=== PATIENT | female | born 1985 | race African-American/Black ===

== ENCOUNTER 2019-08-02 15:59 | Emergency (ER) | payer SELFPAY ==
[~2019-08-02] VITALS: Ht 175.3 cm; Wt 91.8 kg
[~2019-08-02 15:59] MED LIST: BENZ100C PO; PRED50TA PO; PROAIR RESPICL90 MCG IH; PSEU120T58 PO
[2019-08-02 16:10] VITALS: BP 147/80
[2019-08-02] MEDS ORDERED: IBUPROFEN 200 MG TABLET. PO ONE (16:15)
--- NOTE | 2019-08-02 16:16 | PHYS DOC ---
Past Medical History Past Medical History: No Pertinent History Past Surgical History: No Surgical History Alcohol Use: Rarely Drug Use: Marijuana Adult General Chief Complaint Chief Complaint: FEVER HPI HPI Patient is a 34 year old female who presents with 3 days of fever, cough, bodyaches, nasal congestion, itchy watery eyes. She states she's been taking [place] cold and flu. She last took that this morning. Temperature and the emergency room is under 100.2. Review of Systems Review of Systems Constitutional: fever or chills [] HENT: nasal congestion or denies sore throat [] Respiratory: cough or denies shortness of breath [] GI: Decrease appetite. Denies abdominal pain, nausea, vomiting, bloody stools or diarrhea [] Musculoskeletal: Generalized. Denies back pain or joint pain [] All other systems were reviewed and found to be within normal limits, except as documented in this note. Current Medications Current Medications Current Medications Medications (Trade) Dose Ordered Sig/Hilario Start Time Stop Time Status Last Admin Dose Admin Ibuprofen (Motrin) 600 mg 1X ONCE 08/02/19 16:15 08/02/19 16:16 DC 08/02/19 16:19 600 MG Allergies Allergies Allergies Coded Allergies Type Severity Reaction Last Updated Verified No Known Drug Allergies 05/01/16 No Physical Exam Physical Exam Constitutional: Well developed, well nourished, no acute distress, non-toxic appearance. [] HENT: Normocephalic, atraumatic, bilateral external ears normal, oropharynx moist, no oral exudates, nose normal. Bilateral tympanics pink. [] Eyes: PERRLA, EOMI, conjunctiva normal, no discharge. [] Neck: Normal range of motion, no tenderness, supple, no stridor. [] Cardiovascular:Heart rate regular rhythm, no murmur [] Lungs & Thorax: Bilateral breath sounds clear to auscultation [] Abdomen: Bowel sounds normal, soft, no tenderness, no masses, no pulsatile masses. [] Skin: Warm, dry, no erythema, no rash. [] Back: No tenderness, no CVA tenderness. [] Extremities: No tenderness, no cyanosis, no clubbing, ROM intact, no edema. [] Neurologic: Alert and oriented X 3, normal motor function, normal sensory function, no focal deficits noted. [] Psychologic: Affect normal, judgement normal, mood normal. [] Current Patient Data Vital Signs Vital Signs Date Time Temp Pulse Resp B/P (MAP) Pulse Ox O2 Delivery O2 Flow Rate FiO2 08/02/19 16:10 100.2 110 20 147/80 (102) 98 Room Air 100.2 Lab Values Laboratory Tests Test 08/02/19 16:14 Influenza Type A Antigen Negative (NEGATIVE) Influenza Type B Antigen Positive (NEGATIVE) EKG EKG [] Radiology/Procedures Radiology/Procedures [] Course & Med Decision Making Course & Med Decision Making Alert and oriented. Skin pink warm and dry. Bilateral tympanic pink. Throat is pink without exudates or swelling. Lungs are clear to auscultation all lobes. Patient states she is a smoker. She states she smokes 3 cigarettes a day. Patient denies nausea, vomiting, diarrhea, abdominal pain, visual changes, numbness or tingling, dizziness, weakness. Speaks in full clear sentences. Ambul atory with a steady gait. Patient states she has not been eating much food but she is drinking Gatorade and water. Positive Flu B. Dragon Disclaimer J Carloson Disclaimer This electronic medical record was generated, in whole or in part, using a voice recognition dictation system. Departure Departure Impression: Primary Impression: Influenza B Disposition: 01 HOME, SELF-CARE Condition: STABLE Referrals: NO PCP (PCP) Patient Instructions: Influenza, Adult Additional Instructions: Drink plenty of fluids. Slowly advance her diet. Continue taking Tylenol or ibuprofen to keep her fever down. Continue taking [id number] cold and flu medication. Scripts Methylprednisolone (MEDROL) 4 Mg Tab.ds.pk 1 PKG PO UD, #1 PKG Prov: MIKE CASTILLO [employer]BINATION [employer]ESSER 08/02/19 MIKE CASTILLO COM[employer]ATION PRESSER Aug 02, 2019 16:16
[2019-08-02 16:36] LABS: INFLUENZA A PATIENT NEGATIVE (NEGATIVE)
[2019-08-02 16:39] LABS: INFLUENZA B PATIENT POSITIVE (NEGATIVE)
[2019-08-02] MEDS ORDERED: METH4TAB2 PO (16:45)
== END 2019-08-02 17:18 | disposition home or self-care (01) ==
LOC: ER 15:59
DX: J10.1 Influenza due to other identified influenza virus with other respiratory manifestations (principal); B76.9 Hookworm disease, unspecified; R05 Cough; F12.90 Cannabis use, unspecified, uncomplicated; R09.81 Nasal congestion
CPT/HCPCS: 87804; 99284